=== PATIENT | male | born 2005 | race Hispanic/Latino ===

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

== ENCOUNTER 2023-01-30 09:30 | Outpatient (RCR) | payer OTHER, SELFPAY ==
--- NOTE | 2022-11-07 13:37 | HP.PTEVAL ---
Patient's Visit Information Visit Information Visit Information: PRATIMA ZAPIEN is a 17 year old M referred to Physical Therapy by Dr. Teddy Macario MD with a diagnosis of DISPLACED BIMLLEOLAR FRACTURE OF UNSPECIFIED LOWER LEG. Date of Evaluation: 11/07/22 Physical Therapist: Nuno Easley, PT, Cert MDT, OCS Visit Plan Frequency: 2-4/WEEK Duration: 6 Months Plan: UNABLE TO SPEAK [place] HAD PATIENT SERVICES ASSISTANT OR USE I PHONE ANKLE ORIF ON 09/19 ,AND POST OP NWB FOR 6WEEKS AND WBAT ON 11/07 IS 6WEEKS WITH CAM BOOT AMBULATES WITH CRUTCHES WITH CAM BOOT PT INTERVENTIONS FLEXABLITY G-S ,GAIT AND BALANCE TRAINING WITH PROGRESSION OF WBAT RIGHT ANKLE,ROM/STRENGTHENING ANKLE ,FUNCTIONAL STRENGTHENING AND PROPRIOCEPTION Subjective Subjective: This 17 y/o male presents to physical therapy with right ankle fracture on 09/19/22 at work at [employer]. Patient was working with [email or web address]. Patient went to ER at [facility] x-rays showed Bimalleolar fracture thus underwent s/p ORIF on 09/25/[address] Macario ,placed in CAM boot with NWB RLE and crutches. Patient 6 weeks on November 06 . Patient return 11/11/22. Patient has min edema and no pain. Patient denies paresthesia/tingling . Patient taking no medication. Patient has limitations with walking ,ADLS and functional tasks. Patient goal to walk normal and get back to work. Patient unable to speak Italian thus had personal lines appraiser ant I phone for translation. Patient condition affects QOL and function. 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 pes planus NEURO: denies paresthesia/tingling EDEMA: 53.2 TRIMALLEOR JOINT SKIN: crusty incision GAIT: ambulated with crutches with CAM boot NWB ,thus instructed to ambulate with CAM boot with WBAT with crutches AROM: DF -10 degrees ,PF 50 degrees, inversion 2 degrees ,3 degrees eversion MMT: ( peak force) dorsiflexion 10.8 , posterior tibialis 9.3 ,peroneus 5.7 ,G-S 12.1 STAIS : one steps at time with crutches NWB FLEXABLITY: mod tight G-S Balance/Special Test Scores Lower Extremity Functional Score: 27 Goals Goal 1:: I with HEP for ankle Rehab Goal Time Frame: 6-8 Weeks Goal 2:: Patient to normalize gait community distances Goal Time Frame: 6-8 Weeks Goal 3:: Patient to improve LFES score by 15 -20 points to improve QOL and RTW Goal Time Frame: 6-8 Weeks Goal 4:: Patient to improve peak force ankle stabilizers by 10-15 # strength to improve gait. Goal Time Frame: 6-8 Weeks Goal 5:: Patient to improve AROM by 10-15 degrees to improve stairs Goal Time Frame: 6-8 Weeks Goal 6:: Patient to demonstrate 70 % improvement with increase function and less pain Goal Time Frame: 6-8 Weeks Rehabilitation Potential Physical Therapy Diagnosis: This patient to fx ankle 09/19 thus underwent s/p ORIF ankle with NWB and CAM 6weeks post op .Patient 6 weeks on 11/06/22 with CAM boot with decrease gait, poor ankle AROM , decrease strength ,stairs and RTW thus benefit from skilled PT Rehabilitation Potential: Good Anticipated Interventions Patient/Client Instruction: Educate patient on: Condition and Plan of Care For the Purpose of:: To decrease pain, To increase ROM, To improve muscle performance and motor function, To improve ability to perform ADL's, To increase tolerance to activity/condition/position, To improve ability of physical actions for home/community/work/leisure, To improve gait and locomotor functions, To improve health of tissue, To decrease soft tissue restriction, To increase flexibility/ROM, To improve endurance, To improve balance and To improve tolerance to ADL's Therapeutic Exercise to Include: Strength training, Endurance training, Balance training, Flexibilty training, Passive ROM and Active ROM Comment: ANKLE STRENGTHENING/PROPRIOCEPTION For the Purpose of:: To decrease pain, To increase ROM, To improve muscle performance and motor function, To increase tolerance to activity/condition/position, To improve ability of physical actions for home/community/work/leisure, To improve health of tissue, To decrease soft tissue restriction, To increase flexibility/ROM, To improve endurance and To improve balance Cryotherapy (ice pack, ice massage): Yes Vasopneumatic device: Yes For the Purpose of:: To decrease swelling/inflammation, To improve nutrient delivery to tissue and To increase oxygenation perfusion Text: Thank you for the opportunity to evaluate your patient. For Medicare and Medicare HMO plans, please review the plan of care and approve it. It will need to be FAXED BACK to us at [phone] for Medicare purposes. For Medicare only, by signing this I certify the plan of care. Please let me know if there are questions or concerns regarding this plan of care. Physician Signature: Date:
== END 2023-01-30 19:00 | disposition home or self-care (01) ==
LOC: PT 09:30
PROVIDERS: Referring Provider Orthopaedic Surgery Sports Medicine; Visit Provider Orthopaedic Surgery Sports Medicine
DX: S82.843D Displaced bimalleolar fracture of unspecified lower leg, subsequent encounter for closed fracture with routine healing (principal)
CPT/HCPCS: 97110; 97140; 97161